=== PATIENT | male | born 1995 | race Caucasian/White ===

== ENCOUNTER → 2017-12-11 | Day surgery (SDC) | payer SELFPAY ==
[~2017-12-11] MED LIST: Bacitracin Zinc Ointment 30 gm TUBE ONE; Bupivacaine PF 0.5% 30 ML VIAL ONE; Fentanyl 100 MCG/2 ML VIAL ONE; Ketorolac Tromethamine 30 MG/ML VIAL ONE; Lidocaine 1% PF 5 ML VIAL ONE; Midazolam HCl 2 mg/2 ml Vial ONE; PROPOFOL 200 MG/20 ML VIAL ONE; Sodium Chloride 0.9% 10 ML ONE; Sodium Chloride 0.9% 20 ML ONE; Succinylcholine Chloride 20 MG/ML 10 ml SYRINGE FS ONE; Thrombin 5000 UNITS/5 ML VIAL ONE
[2017-12-11 21:00] LABS: #Basophils 0.1 thou/uL (0.0-0.2); #Monocytes 1.1 thou/uL (0.11-0.59); #Neutrophils 7.8 thou/uL (1.40-6.50); %Basophils 0.6 % (0.0-1.0); %Eosinophils 0.3 % (0.0-10.0); %Lymphocytes 24.7 % (21.0-51.0); %Monocytes 8.8 % (0.0-10.0); %Neutrophils 65.5 % (42.0-75.0); Hemoglobin 14.6 g/dL (14.0-18.0); Mean Corpuscular HGB CONC 34.2 g/dL (32.0-36.0); Mean Corpuscular Hemoglobin 29.8 pg (27.0-31.0); Mean Corpuscular Volume 87.2 fL (78.0-98.0); Platelet Count 276 thou/uL (130-400); RBC Distribution Width 12.2 % (11.5-14.5); Red Blood Cell (RBC) Count 4.89 mill/uL (4.70-6.10); White Blood Cell (WBC) Count 11.9 thou/uL (4.8-10.8)
--- NOTE | 2017-12-11 23:33 | RAD ---
INTRAOPERATIVE IMAGING OF THE LEFT FINGERS 12/11/17 HISTORY: Amputation. FINDINGS: One of the left fingers demonstrates partial amputation of the distal phalanx and adjacent soft tissu es. IMPRESSION: Intraoperative imaging as above. POS: [facility]
--- NOTE | 2017-12-16 11:21 | OP ---
PREOPERATIVE DIAGNOSES: Open wound, open fracture, nerve injury, left middle finger distal phalanx. POSTOPERATIVE DIAGNOSES: Open wound, open fracture, nerve injury, left middle finger distal phalanx with findings of 3 mm of bone protruded from the nail bed fat junction distally. PROCEDURES PERFORMED: 1. Debridement of wound. 2. Repair of nail bed. 3. Bone debridement for open fracture treatment of the distal phalanx of the injured finger. 4. Skin graft 2 x 1 cm from the antecubital fossa ipsilateral. was the only 5 mm long skin and minimal nail bed from the fracture injury at the distal phalan x palmar tip. SPECIMENS: None. ANESTHESIA: General. LMA technique with 20 mL of 0.5% Marcaine, total given, 10 at the harvest site ipsilateral antecubital fossa and 10 distally. BLOOD LOSS: 10 mL. TOURNIQUET TIME: None. DESCRIPTION OF PROCEDURE: After successful general LMA technique, the limb was prepped and draped. The patient underwent the identification of the wound, then I inflated the tourniquet and exsanguinat ed the limb, and then we were able to visualize there was a moderate amount of residual fat. The pat ient then had the rim of the nail removed, we removed the blood and blood clot products, and proceede d to perform soft tissue debridement as well as debridement of the excess ____ r[place]ur [place] blade, tenotomy scissors, and a rasp of the bone. was a oblique small laceration in the nail itself , so we repaired this over a good background of bone using a 5-0 chromic. We then were able to bring the bone back to point where it was slightly recessed in its tunnel using multiple techniques. After we had debrided the wound then, we repaired the nail using a chromic that was applied for the w ound coverage phase. We finished now debriding the bone (03:04) open fracture, now turned to s ome soft tissue coverage. Even with this small debrided back 1 mm proximal to the junction of the skin and the we then w ere still able to achieve a 1-mm recessed bone, supported the nail bed by the repair listed above, an d then we were able to measure the amount of subcutaneous fat still exposed. This measured approxima tely 1.8 x 1 cm, so we performed a full-thickness skin graft harvested ipsilateral antecubital fossa , they were able to obtain the denuded graft application. The graft now was placed on the dist al phalanx tip, using 3 bolster stitches, circumferentially 5-0 chromic gut to secure it to the graft donor to recipient site and then the patient had this irrigated. We then placed the bolster with ba citracin, cotton ball and tied this very tight to get a pressure needed for the graft and my gynecological assistant was able to perform closure of the wound in two layers with a deep epidermal white col or and continue this exchange. The patient no hemostasis obtained. Wound had a leading edge that was proximal to the wrist and the patient left the operating room without complications.
== END ==
LOC: SDC 19:53
PROVIDERS: ATTEND Orthopaedic Surgery Hand Surgery
PROC: 0HQQXZZ Repair Finger Nail, External Approach (ICD-10-PCS; principal; 2017-12-11)
PROC: 0PBV0ZZ Excision of Left Finger Phalanx, Open Approach (ICD-10-PCS; principal; 2017-12-11)
PROC: 0HRGX73 Replacement of Left Hand Skin with Autologous Tissue Substitute, Full Thickness, External Approach (ICD-10-PCS; principal; 2017-12-11)
DX: S62.633B Displaced fracture of distal phalanx of left middle finger, initial encounter for open fracture (principal); W23.0XXA Caught, crushed, jammed, or pinched between moving objects, initial encounter
CPT/HCPCS: 36415; 76001; 85025; 85652; 96374; A4216; J1885; J2001; J2250; J2704; J3010; J3490; S0020